=== PATIENT | female | born 1960 | race Caucasian/White ===

== ENCOUNTER 2019-06-01 08:02 | Emergency (ER) | payer SELFPAY ==
[~2019-06-01] VITALS: Ht 160 cm; Wt 61.0 kg
[2019-06-01] MEDS ORDERED: METF-815 PO (08:16)
[2019-06-01] MEDS ORDERED: ACETAMINOPHEN WITH CODEINE 300/30MG TABLET PO ONE (08:45)
[2019-06-01 09:45] VITALS: BP 150/84
== END 2019-06-01 09:52 | disposition home or self-care (01) ==
LOC: ER 08:12
DX: M54.5 Low back pain (principal); E11.9 Type 2 diabetes mellitus without complications; V03.10XA Pedestrian on foot injured in collision with car, pick-up truck or van in traffic accident, initial encounter; Y93.89 Activity, other specified; Y92.488 Other paved roadways as the place of occurrence of the external cause
CPT/HCPCS: 71045; 72040; 72100; 73030; 93005; 99283